=== PATIENT | male | born 1945 | race Caucasian/White ===

== ENCOUNTER → 2019-05-16 | Outpatient (CLI) | payer MEDICARE, BC ==
--- NOTE | 2019-05-16 14:24 | CT ---
EXAM DESCRIPTION: CT cervical spine CLINICAL HISTORY: Radiculopathy. Cervical spine pain COMPARISON: None Available. TECHNIQUE: Thin section CT with coronal and sagittal reformatted images. This exam was performed according to our departmental dose-optimization program, which includes automated exposure control, adjustment of the mA and/or kV according to patient size and/or use of iterative reconstruction technique. FINDINGS: Inherent limitation of cervical canal soft tissue evaluation C5 and below Anterior plate and screw fixation and solid osseous interbody fusion C5-C7. 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 Capsular hypertrophy indenting the cervical medullary junction without canal stenosis or cord compression C2-3: Moderate loss of disc height with mild protrusion indenting the ventral thecal sac. Severe left and moderate right facet arthrosis with mild foraminal encroachment C3-4: Moderate loss of disc height without acute disk abnormality. Severe left and mild right facet arthrosis in combination with uncovertebral joint hypertrophy right greater than left leads to moderate bilateral foraminal stenosis C4-5: Mild annular bulge. Severe left and moderate right facet arthrosis. Moderate to severe left and moderate right foraminal stenosis C5-6: No acute abnormality C6-7: No acute abnormality C7-T1: Moderate facet arthrosis left greater than right with mild foraminal narrowing No mass or adenopathy in the soft tissues of the neck. 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 See above discussion regarding each level Electronically signed by: Arpit Miguel MD 05/16/2019 2:22 PM CDT
== END ==
LOC: CT 09:56
PROVIDERS: ATTEND Nurse Practitioner Family
DX: M47.22 Other spondylosis with radiculopathy, cervical region (principal); Z98.1 Arthrodesis status

== ENCOUNTER → 2019-12-21 | Outpatient (CLI) | payer MEDICARE, BC ==
--- NOTE | 2019-12-22 12:47 | CT ---
Procedure: CT LUNG SCREENING Exam Date: 12/21/2019 Ordering Provider: Brenda Blum Clinical Indication: PERSONAL HISTORY OF TOBACCO USE 2 packs per day. This patient meets eligibility criteria for low-dose CT lung cancer screening. Comparison: Chest x-ray November 2015. Technique: Using a multislice scanner, sequential helical axial imaging was obtained in the thorax, 2.5 mm thickness, 2.5 mm separation, from the level of the thoracic inlet through the lung bases without IV contrast. A low dose protocol was utilized for BMI less than 30: BMI: 22.8. CTDI: 1.76 mGy. 120. kVp. 45 mA. DLP 66 mGy-cm. 2D sagittal and coronal reconstructed images, 6.0 mm thickness, were obtained. This exam was performed according to our departmental dose optimization program which includes use of automated exposure control, adjustment of the mA and/or kV according to patient size and/or use of iterative reconstruction technique. Nodule measurements under 10 mm are given as mean value of 3 axes diameters. FINDINGS: Lungs and large airways: Minimal bilateral perihilar peribronchial wall cuffing. Pleural parenchymal scarring in the medial right lung base and anterior left base. No abnormal nodules and no masses. No focal infiltrates. Pleura and space: Negative. Mediastinum and mckenna: evaluation limited by low dose technique and lack of IV contrast. Small lymph nodes cartilage calcifications. No dominant soft tissue mass. Heart and great vessels: Coronary artery calcifications. Calcifications in several brachiocephalic vessels aortic arch and descending thoracic aorta. Chest wall, lower neck, axillae: Evaluation also limited by same factors as described above. Negative. Upper abdomen: Evaluation limited by low-dose technique. Included peritoneal cavity with no free fluid or free air. Included adrenal glands and spleen normal size and density. Atherosclerotic aortic calcifications. Osseous structures: Evaluation limited by low dose MIP technique. Anterior cervical disc fusion. Spondylosis at several levels of the thoracic spine. Bilateral glenohumeral joint arthrosis. IMPRESSION: Perihilar peribronchial wall cuffing most likely from prior bronchitis or viral infection. No air trapping. No abnormal nodules and no masses. No focal infiltrates. [facility] Best Practice Recommendations: please see below for Lung RADS category and FOLLOW-UP.* *Lung RADS category Category 1 - No nodule or definitely benign nodules (probability of malignancy less than 1%). Follow-up: Continue annual screening with Low Dose Chest CT in 12 months. Electronically signed by: Dennis Jefferson MD 12/22/2019 12:46 PM CDT
== END ==
LOC: CT 09:59
PROVIDERS: ATTEND Nurse Practitioner Family
DX: Z87.891 Personal history of nicotine dependence (principal); R91.8 Other nonspecific abnormal finding of lung field